=== PATIENT | female | born 1980 | race Caucasian/White ===

== ENCOUNTER → 2019-07-31 10:48 | Outpatient (BNVA) | payer OTHER, SELFPAY | PROVIDERS: Family Provider Family Medicine; PCP Family Medicine; Visit Provider Nurse Practitioner Family | DX: R50.9 Fever, unspecified (principal); J02.9 Acute pharyngitis, unspecified | CPT/HCPCS: 87081; 87804; 87880 ==

== ENCOUNTER 2019-11-18 09:19 | Outpatient (CLI) | payer OTHER, SELFPAY ==
--- NOTE | 2019-11-18 10:23 | MM_ITS ---
WS: [id number] BILATERAL DIGITAL DIAGNOSTIC MAMMOGRAM MAMMOGRAPHY WITH CAD CLINICAL INFORMATION: RIGHT BREAST LUMP COMPARISON: None. TECHNIQUE: Bilateral CC, MLO, and ML views. FINDINGS: The breasts are composed of heterogeneous fibroglandular density, which can limit the detection of sm all underlying mass lesions. Palpable marker upper outer right breast. No underlying mammographic abn ormalities deep to the palpable marker. Ultrasound is pending. Oval-shaped nodular density upper outer right breast likely represents a lymph node. Left breast is unremarkable. ULTRASOUND BREAST RIGHT TECHNIQUE: Ultrasound right breast focused area of concern. CLINICAL INFORMATION: Right BREAST LUMP COMPARISON: None. FINDINGS: Ultrasound right breast 11:00 position 4 cm from the nipple. Hypoechoic oval-shaped lesion with fatty hilum most consistent with benign incidental lymph node. This measures approximately 7.7 x 3.0 mm. T his corresponds to the nodular density seen on the mammogram. A few dilated ducts with a band of dense fibrous tissue at the 11:00 position in the area of patient palpable concern. This is probably benign and recommend 6 month follow-up diagnostic mammography and ultrasound to confirm stability. MM/[place] [id number] IMPRESSION: BI-RADS: 3-Probably Benign FOLLOW UP: 6 Month Follow-up
== END 2019-11-18 09:20 | disposition home or self-care (01) ==
LOC: RADSHAW 09:23
PROVIDERS: Family Provider Family Medicine; PCP Family Medicine; Visit Provider Nurse Practitioner Family
DX: N63.11 Unspecified lump in the right breast, upper outer quadrant
CPT/HCPCS: 76641; 77066

== ENCOUNTER 2020-07-16 10:41 | Outpatient (CLI) | payer OTHER, SELFPAY ==
--- NOTE | 2020-07-16 10:45 | MM_ITS ---
WS: [id number] RIGHT DIGITAL MAMMOGRAPHY WITH CAD CLINICAL INFORMATION: 6 MO F/U RT BREAST LUMP COMPARISON: November 18, 2019 TECHNIQUE: 5 views of the right breast were obtained. FINDINGS: The right breast is composed of heterogeneous fibroglandular density tissue, which can limit the dete ction of small underlying mass lesions. Stable 6 mm oval shaped nodular density upper outer right leonardo ast anterior depth. This is unchanged in appearance. Ultrasound is pending. ULTRASOUND BREAST RIGHT TECHNIQUE: Ultrasound right breast focused area of concern. CLINICAL INFORMATION: 6 MO F/U RT BREAST LUMP COMPARISON: November 18, 2019 FINDINGS: Ultrasound right breast 11:00 position. Again seen is the small hypoechoic lesion likely representing a small lymph node measuring 7.4 x 6.6 2.5 mm. Dense parenchymal tissue with a few dilated ducts is unchanged and has a benign appearance. R ecommend return to screening mammography. MM/[place] [id number] IMPRESSION: BI-RADS: 2-Benign FOLLOW UP: 1 Year Follow-up Recommend return to annual screening mammography.
== END 2020-07-16 10:42 | disposition home or self-care (01) ==
LOC: RADSHAW 10:43
PROVIDERS: PCP Family Medicine; Visit Provider Family Medicine
DX: Z12.31 Encounter for screening mammogram for malignant neoplasm of breast (principal); N63.11 Unspecified lump in the right breast, upper outer quadrant
CPT/HCPCS: 76642; 77065

== ENCOUNTER → 2022-04-28 09:23 | Outpatient (BNVA) | payer OTHER, SELFPAY | PROVIDERS: PCP Family Medicine; Visit Provider Family Medicine | DX: Z00.00 Encounter for general adult medical examination without abnormal findings (principal) | CPT/HCPCS: 80053; 80061 ==

== ENCOUNTER → 2022-06-24 15:26 | Outpatient (BNVA) | payer OTHER, SELFPAY | PROVIDERS: PCP Family Medicine; Visit Provider Family Medicine | DX: R53.83 Other fatigue (principal); R20.2 Paresthesia of skin; L65.9 Nonscarring hair loss, unspecified | CPT/HCPCS: 82306; 82607; 84443 ==

== ENCOUNTER 2022-10-16 11:02 | Outpatient (CLI) | payer OTHER, SELFPAY ==
--- NOTE | 2022-10-16 11:00 | MR_ITS ---
WS: [id number] MRI BRAIN WITHOUT CONTRAST HISTORY: vision loss, headaches COMPARISON: None available. TECHNIQUE: Diffusion imaging, multiplanar T1, T2 and FLAIR imaging obtained. No evidence for acute infarct or hemorrhage. Lozano-white matter differentiation is normal. No remote or acute infarcts are volume loss. Ventricles and extra-axial spaces are normal. No inferior displacement of cerebellar tonsils. The sella turcica and pituitary gland are unremarkabl e. Dural venous sinuses and [place] demonstrate no abnormality on this unenhanced studies. Paranasal sinuses: Small mucous retention cyst in the RIGHT maxillary sinus. No air-fluid levels. Mastoid air cells: Normal. Calvarium and scalp: Intact. MR/MR head wo con* [id number] IMPRESSION: 1. Unremarkable noncontrast MRI brain. 2. No acute infarct or signal abnormalities.
== END 2022-10-16 11:03 | disposition home or self-care (01) ==
PROVIDERS: PCP Family Medicine; Referring Provider Psychiatry & Neurology Neurology; Visit Provider Family Medicine
DX: H54.7 Unspecified visual loss (principal); R51.9 Headache, unspecified
CPT/HCPCS: 70551

== ENCOUNTER → 2022-11-17 16:24 | Outpatient (BNVA) | payer OTHER, SELFPAY | PROVIDERS: PCP Family Medicine; Visit Provider Family Medicine | DX: R51.9 Headache, unspecified (principal); H54.7 Unspecified visual loss; L65.9 Nonscarring hair loss, unspecified; R53.83 Other fatigue | CPT/HCPCS: 80053; 85025; 85651; 86140; 86160; 86162; 86235; 86255; 86376 ==

== ENCOUNTER → 2023-04-09 08:05 | Outpatient (BNVA) | payer OTHER, SELFPAY | PROVIDERS: PCP Family Medicine; Visit Provider Family Medicine | DX: G43.909 Migraine, unspecified, not intractable, without status migrainosus (principal); R51.9 Headache, unspecified | CPT/HCPCS: 80053; 84443; 85025; 86003; 86008; 86618; 86666; 86757 ==

== ENCOUNTER 2023-08-25 06:00 | Emergency (ER) | payer OTHER, SELFPAY ==
[2023-08-25 06:06] VITALS: BP 136/112; PULSE 96; RESP 16; TEMP 36.3; O2SAT 98; BMI 27.4
--- NOTE | 2023-08-25 06:08 | ED_ITS ---
HPI - Animal Bite General: Chief Complaint: Animal Bite Stated Complaint: sent over by Dr cat bite Time Seen by Provider: 08/25/23 06:03 Source: patient Mode of arrival: ambulatory History of Present Illness: 43-year-old female was bitten by a cat 1 week ago distal aspect of the right fourth finger, and fifth finger. Initially started on ofloxacin and then was changed to Bactrim and Flagyl as she continues to take that she has a localized infection at the site of the bite on the distal right fourth finger she is treating was Epsom salt soaks and the oral antibiotics. She has not had any axillary or epitrochlear pain or swelling. Her tetanus was updated when she was initially seen when the bite occurred on 08/19. She had held off on starting rabies vaccination and been trying to capture the cats for testing however they have been unable to do so and were referred for rabies vaccination MD complaint: animal bite Onset (ago): day(s) (1) Animal: cat Description of animal: unknown animal Mechanism: bite Associated symptoms: Deny chills or fever(s) Review of Systems Const: Denies: fever(s) or chills Card: Denies: chest pain Resp: Denies: dyspnea GI: Denies: abdominal pain Musc: Denies: neck pain or back pain Skin/Breast: Denies: rash PFSH ED PFSH: Medical History Essential hypertension Chronic sinusitis Seasonal allergic rhinitis Hx of concussion Migraines Major depression History of tularemia Surgical History Hx of wisdom tooth extraction History of hernia repair Family History Father Cancer brain Brother Asthma Mother Osteoarthritis Social History Smoking and tobacco/nicotine status: never used tobacco/nicotine Alcohol intake: current Alcohol intake frequency: holidays/special occasions only Substance/Drug Use: never Physical Exam Const: COMMON NORMALS: no acute distress GENERAL APPEARANCE: cooperative and comfortable ORIENTATION/CONSCIOUSNESS: Yes awake, Yes oriented to person, Yes oriented to place and Yes oriented to time HENMT: COMMON NORMALS: normocephalic, atraumatic and hearing grossly normal bilaterally HEAD & SCALP: normocephalic and atraumatic Resp: COMMON NORMALS: normal respiratory effort, No retractions and No use of accessory muscles Extremity: OTHER: Localized redness and inflammation of the right distal fourth finger overlying the DIP. No epitrochlear nodes are palpable no axillary nodes are palpable on the right Neuro: SENSORIUM/ORIENTATION: Yes oriented to person, Yes oriented to place and Yes oriented to time Course Vital Signs: Vital signs: Vital Signs Temperature 97.4 F L 08/25/23 06:06 Pulse Rate 88 08/25/23 06:14 Respiratory Rate 16 08/25/23 06:06 Blood Pressure 136/112 08/25/23 06:14 Pulse Oximetry 99 08/25/23 06:14 Oxygen Delivery Me thod Room Air 08/25/23 06:14 MDM - Animal Bite Medical Decision Making Complete course of previously prescribed antibiotics. Rabies immunoglobulin infiltrated at the wound and the balance given IM. Initiate rabies vaccine series patient given instructions. Medical Records I reviewed the patient's medical records. No radiology studies performed this visit Discharge Plan Discharge Patient Disposition: Home Clinical Impression: Cat bite Condition: Stable Prescriptions: No Action sulfamethoxazole-trimethoprim [Bactrim DS] 800-160 mg tablet 1 tab PO BID Qty: 20 0RF metronidazole 500 mg tablet 500 mg PO TID Qty: 30 0RF Imovax Rabies Vaccine (PF) 2.5 unit recon soln 1 ml IM .day 0,3,7,14 4 Days Qty: 1 4RF Imogam Rabies-HT (PF) 150 unit/mL solution 1,497 unit IM ONCE Qty: 2 0RF Rx Instructions: 20 IU/kg IM x 1 dose propranolol 10 mg tablet See Rx Instructions .ROUTE .COMPLEX Qty: 180 3RF Dose Instruction: TAKE 1 TABLET BY MOUTH TWO TIMES DAILY Rx Instructions: TAKE 1 TABLET BY MOUTH TWO TIMES DAILY sertraline 100 mg tablet See Rx Instructions .ROUTE .COMPLEX Qty: 30 11RF Dose Instruction: TAKE 1 TABLET BY MOUTH EVERY DAY Rx Instructions: TAKE 1 TABLET BY MOUTH EVERY DAY fluticasone propionate 50 mcg/actuation spray,suspension See Rx Instructions .ROUTE .COMPLEX Qty: 16 10RF Dose Instruction: USE 1 SPRAY IN EACH NOSTRIL EVERY DAY FOR ALLERGIES Rx Instructions: USE 1 SPRAY IN EACH NOSTRIL EVERY DAY FOR ALLERGIES clonazepam [Klonopin] 0.5 mg tablet 0.25 mg PO BID Qty: 60 5RF Discharge Orders: Discharge ED (Routine); Ordered 08/25/23 Ordered By: Sudheer Correa Referrals: Naveen Xie MD [Primary Care Provider] - Discharge Diet: Usual diet Discharge Activity: Increase activity as tolerated Patient Instructions: Rabies Immune Globulin (By injection) (HyperRAB S/D, Imogam..., Animal Bite (ED), Rabies (ED), Opioid Safety, Pain Management Coding Level of Care Code ED [employer] Technician for Sanjeev Baker
[2023-08-25 06:14] VITALS: BP 136/112; PULSE 88; O2SAT 99
[2023-08-25] MEDS: rabies IG 300 unit/mL SDV 1 mL 1450 UNIT INFILTRATI (07:22)
[2023-08-25] MEDS: rabies vaccine 2.5 unit SDV IM (07:25)
== END 2023-08-25 07:41 | disposition home or self-care (01) ==
PROVIDERS: Emergency Provider Family Medicine; PCP Family Medicine
DX: S61.254A Open bite of right ring finger without damage to nail, initial encounter (principal); W55.01XA Bitten by cat, initial encounter; I10 Essential (primary) hypertension; Z23 Encounter for immunization; Z29.14 Encounter for prophylactic rabies immune globulin; Z20.3 Contact with and (suspected) exposure to rabies
CPT/HCPCS: 87040; 90375; 90471; 90675; 99283

== ENCOUNTER 2023-09-08 07:30 | Oncology outpatient (recurring) (ONCR) | payer OTHER, SELFPAY ==
[2023-08-28] MEDS: rabies vaccine 2.5 unit SDV IM (07:35)
[2023-08-28 07:37] VITALS: BP 123/87; PULSE 86; RESP 16; TEMP 36.9; O2SAT 96
[2023-09-01 07:52] VITALS: BP 128/85; PULSE 83; RESP 14; TEMP 36.7; O2SAT 97
[2023-09-01] MEDS: rabies vaccine 2.5 unit SDV IM (07:54)
[2023-09-08 07:49] VITALS: BP 137/99; PULSE 85; RESP 16; TEMP 36.6; O2SAT 98
[2023-09-08] MEDS: rabies vaccine 2.5 unit SDV IM (07:51)
== END 2023-09-17 23:59 | disposition home or self-care (01) ==
PROVIDERS: PCP Family Medicine; Visit Provider Family Medicine
DX: Z20.3 Contact with and (suspected) exposure to rabies (principal); Z23 Encounter for immunization; T14.8XXA Other injury of unspecified body region, initial encounter; W55.01XA Bitten by cat, initial encounter
CPT/HCPCS: 90471; 90675

== ENCOUNTER → 2024-07-04 13:44 | Outpatient (BNVA) | payer OTHER, SELFPAY | PROVIDERS: PCP Family Medicine; Visit Provider Family Medicine | DX: I10 Essential (primary) hypertension (principal); M79.643 Pain in unspecified hand | CPT/HCPCS: 84550; 85025; 86140 ==

== ENCOUNTER 2024-07-11 13:33 | Outpatient (CLI) | payer OTHER, SELFPAY ==
--- NOTE | 2024-07-11 13:45 | MR_ITS ---
WS: [id number] MRI CERVICAL SPINE NONCONTRAST TECHNIQUE: Sagittal T1, T2 and STIR imaging. Axial T2, gradient, and fiesta imaging. CLINICAL INFORMATION: persistent neck pain COMPARISON: None. FINDINGS: Cord signal is normal. Mild disc bulging worse at C3-C4 C4-C5 C5-C6. Straightening of the normal cervical lordosis. C2-C3: Minimal disc bulging. Spinal canal and foramen are patent. C3-C4: Mild disc osteophyte complex with endplate ridging. Mild central canal stenosis. Slight indent ation of the RIGHT ventral cervical cord. Mild bilateral bony foraminal narrowing. Mild facet arthrop athy. C4-C5: Shallow central disc osteophyte protrusion with slight indentation on the cervical cord. Mild central canal stenosis with mild bilateral foraminal narrowing. C5-C6: RIGHT paracentral disc osteophyte protrusion with slight indentation of the cervical cord. Mil d to moderate central canal stenosis. Moderate RIGHT greater than LEFT bony foraminal narrowing. C6-C7: Mild LEFT and no significant RIGHT foraminal narrowing. Spinal canal is patent. C7-T1: Mild LEFT and no significant RIGHT foraminal narrowing. Spinal canal is patent. Visualized brain stem structures: Normal. Prevertebral soft tissues: Normal. MR/MR cervical spin wo con* [id number] IMPRESSION: 1. Straightening of the normal cervical lordosis. 2. Disc osteophyte protrusions with mild central canal stenosis C3-C4 and C4-C 5. Moderate central canal stenosis C5-C6 with slight indentation on the RIGHT v entral cervical cord. 3. Moderate RIGHT C5-C6 bony foraminal narrowing. 4. Mild foraminal narrowing worse at bilateral C3-C4 LEFT C5-C6 and LEFT C6-7 bony foraminal narrowing.
== END 2024-07-11 13:34 | disposition home or self-care (01) ==
LOC: RAD 13:34
PROVIDERS: PCP Family Medicine; Visit Provider Family Medicine
DX: M99.62 Osseous and subluxation stenosis of intervertebral foramina of thoracic region (principal); M50.222 Other cervical disc displacement at C5-C6 level; M25.78 Osteophyte, vertebrae; M48.02 Spinal stenosis, cervical region
CPT/HCPCS: 72141

== ENCOUNTER → 2025-07-19 11:30 | Outpatient (BNVA) | payer BC, SELFPAY | PROVIDERS: PCP Family Medicine; Visit Provider Family Medicine | DX: R10.9 Unspecified abdominal pain (principal) | CPT/HCPCS: 80053; 83690; 84443; 85025 ==